=== PATIENT | female | born 1980 | race Caucasian/White ===

== ENCOUNTER 2021-08-07 13:44 | Outpatient (CLI) | payer SELFPAY ==
--- NOTE | 2021-08-07 13:52 | XRR_ITS ---
PROCEDURE INFORMATION: Exam: XR Left Ankle Exam date and time: 08/07/2021 1:52 PM Age: 41 years old Clinical indication: Left; Patient HX: History--no known inury pain and swelling to entire foot and ankle x 6 days; Additional info: L ankle foot pain TECHNIQUE: Imaging protocol: XR Left ankle. Views: 3 or more views. COMPARISON: No relevant prior studies available. FINDINGS: Bones/joints: Moderate calcified plantar calcaneal heel spur. Soft tissues: Normal. XR/XR ankle LT min 3V* [id number] IMPRESSION: 1. Negative for fracture or dislocation 2. Moderate calcified plantar calcaneal heel spur. Radiation Dose CTDIVOL = (mGy): DLP = (mGy-cm)
--- NOTE | 2021-08-07 13:52 | XRR_ITS ---
PROCEDURE INFORMATION: Exam: XR Left Foot Exam date and time: 08/07/2021 1:52 PM Age: 41 years old Clinical indication: Left; Patient HX: History--no known inury pain and swelling to entire foot and ankle x 6 days; Additional info: L ankle foot pain/edema TECHNIQUE: Imaging protocol: XR Left foot. Views: 3 or more views. COMPARISON: No relevant prior studies available. FINDINGS: Bones/joints: Moderate calcified plantar calcaneal heel spur. Soft tissues: Normal. XR/XR foot LT min 3V* [id number] IMPRESSION: 1. Negative for fracture or dislocation 2. Moderate calcified plantar calcaneal heel spur. Radiation Dose CTDIVOL = (mGy): DLP = (mGy-cm)
== END 2021-08-07 13:45 | disposition home or self-care (01) ==
LOC: RAD 13:48
PROVIDERS: PCP Nurse Practitioner Family; Visit Provider Nurse Practitioner Family
DX: M25.572 Pain in left ankle and joints of left foot (principal); M79.672 Pain in left foot; R60.9 Edema, unspecified; M77.32 Calcaneal spur, left foot
CPT/HCPCS: 73610; 73630

== ENCOUNTER 2021-08-25 14:44 | Outpatient (CLI) | payer SELFPAY ==
--- NOTE | 2021-08-25 14:53 | USCV_ITS ---
Kayleen Patel Age: 41 Gender: F : 1980 Exam Date: 08/25/2021 15:18 Ordering Phys: Giovanni Sanchez MD Technologist: Yocasta Zhang Exam Location: [facility] – [place] Indication: PAIN LT FOOT 3 WEEK WITH NO TRAUMA HISTORY: Pain Lt foot 3 weeks with no trauma PROCEDURES: Venous duplex imaging was performed in only the left lower extremity. The following venous structures were evaluated: common femoral vein, profunda vein, proximal portion of the greater saphenous vein, superficial femoral vein, and the popliteal vein. In addition, the posterior tibial and peroneal trunk were evaluated. Serial compression, augmentation maneuvers, and spectral Doppler flow evaluation were performed. FINDINGS: Normal 2-D Doppler and augmentation and compressibility throughout the lower extremity venous structures. Additional imaging through the proximal calf veins also reveals no thrombus. Limited evaluation of the greater saphenous vein is patent with no thrombus. Subcutaneous fluid near the ankle. CONCLUSIONS No DVT left lower extremity. Dr. Debby Gilbert DO (Electronically Signed) Final Date: 25 August 2021 16:05 S
== END 2021-08-25 14:45 | disposition home or self-care (01) ==
PROVIDERS: PCP Nurse Practitioner Family; Visit Provider Family Medicine
DX: M79.672 Pain in left foot (principal); R60.9 Edema, unspecified
CPT/HCPCS: 93971

== ENCOUNTER 2023-04-22 08:29 | Outpatient (CLI) | payer MEDICAID, SELFPAY ==
--- NOTE | 2023-04-22 08:36 | XRR_ITS ---
PROCEDURE INFORMATION: Exam: XR Left Knee Exam date and time: 04/22/2023 8:40 AM Age: 42 years old Clinical indication: Pain; Bilateral; Patient HX: Inflammation and swelling in both knees with sparatic swelling in hands and feet for 5 years; Additional info: Bilateral knee joint pain x 3 months TECHNIQUE: Imaging protocol: Radiologic exam of the left knee. Views: 3 views. AP Obilque Lateral COMPARISON: CR XR foot LT min 3V* [id number] 08/07/2021 2:16 PM FINDINGS: Bones/joints: There is normal alignment without fractures or dislocations. The medial and lateral tibiofemoral compartments and patellofemoral compartment are unremarkable. There are no joint bodies. There are no joint space or marginal erosive changes or periarticular osteopenia. Soft tissues: There is no joint effusion. There are no radiopaque foreign bodies. There is no knee region soft tissue swelling. Notes: If there is further concern, recommend follow-up radiographs or MRI for complete assessment. XR/XR knee LT 3V* [id number] IMPRESSION: Unremarkable left knee radiographs.
--- NOTE | 2023-04-22 08:36 | XRR_ITS ---
PROCEDURE INFORMATION: Exam: XR Right Knee Exam date and time: 04/22/2023 8:40 AM Age: 42 years old Clinical indication: Pain; Bilateral; Patient HX: Inflammation and swelling in both knees with sparatic swelling in hands and feet for 5 years; Additional info: Bilateral knee joint pain x 3 months TECHNIQUE: Imaging protocol: Radiologic exam of the right knee. Views: 3 views. AP Obilque Lateral COMPARISON: No relevant prior studies available. FINDINGS: Bones/joints: There is normal alignment without fractures or dislocations. The medial and lateral tibiofemoral compartments and patellofemoral compartment are unremarkable. There are no joint bodies. There are no joint space or marginal erosive changes or periarticular osteopenia. Soft tissues: There is no joint effusion. There are no radiopaque foreign bodies. There is no knee region soft tissue swelling. Notes: If there is further concern, recommend follow-up radiographs or MRI for complete assessment. XR/XR knee RT 3V* [id number] IMPRESSION: Unremarkable right knee radiographs.
== END 2023-04-22 08:30 | disposition home or self-care (01) ==
PROVIDERS: PCP Family Medicine; Visit Provider Family Medicine
DX: M25.562 Pain in left knee (principal); M25.561 Pain in right knee; M79.89 Other specified soft tissue disorders
CPT/HCPCS: 73562

== ENCOUNTER 2023-04-24 14:16 | Outpatient (CLI) | payer MEDICAID, SELFPAY ==
[2023-04-25 11:24] LABS: Anti-Double Strand DNA AB 6 IU/mL; SS A Ro Sjogrens Antibody <1.0 NEG AI (<1.0 NEG); SS-B/LA IGG <1.0 NEG AI (<1.0 NEG)
[2023-04-26 12:19] LABS: Anti-Nuclear Antibody Pattern Nuclear, Homogeneous; Anti-Nuclear Antibody Screen POSITIVE (NEGATIVE); Anti-Nuclear Antibody Titer 1:40 titer
[2023-06-05 16:41] LABS: SM/RNP Antibodies <1.0 NEG
== END 2023-04-24 14:17 | disposition home or self-care (01) ==
PROVIDERS: PCP Family Medicine; Visit Provider Dermatology
DX: R76.0 Raised antibody titer (principal)
CPT/HCPCS: 36415; 86038; 86225; 86235

== ENCOUNTER 2023-06-18 12:49 | Outpatient (CLI) | payer MEDICAID, SELFPAY ==
[2023-06-18 13:02] VITALS: PULSE 97; RESP 18; O2SAT 99
[2023-06-18] MEDS: albuterol 2.5 mg/3 mL Neb INHALATION (13:05)
[2023-06-18 13:06] VITALS: PULSE 90
== END 2023-06-18 12:50 | disposition home or self-care (01) ==
LOC: RT 12:50
PROVIDERS: PCP Family Medicine; Visit Provider Family Medicine
DX: J45.909 Unspecified asthma, uncomplicated (principal)
CPT/HCPCS: 94060

== ENCOUNTER → 2023-08-06 12:14 | Outpatient (BNVA) | payer MEDICAID, SELFPAY | PROVIDERS: PCP Family Medicine; Visit Provider Internal Medicine | DX: R76.8 Other specified abnormal immunological findings in serum (principal); M25.50 Pain in unspecified joint; R53.83 Other fatigue; R21 Rash and other nonspecific skin eruption; L40.9 Psoriasis, unspecified | CPT/HCPCS: 36415; 72202; 73120; 73620; 80053; 81001; 82533; 82550; 82607; 82784; 83516; 83735; 84100; 84443; 85025; 85651; 86140; 86200; 86704; 86803; 87340 ==

== ENCOUNTER → 2024-07-31 10:25 | Outpatient (BNVA) | payer MEDICAID, SELFPAY | PROVIDERS: PCP Family Medicine; Visit Provider Family Medicine | DX: R30.0 Dysuria (principal) | CPT/HCPCS: 81000; 87086 ==

== ENCOUNTER → 2025-05-11 09:00 | Outpatient (BNVA) | payer MEDICAID, SELFPAY | PROVIDERS: PCP Family Medicine; Visit Provider Family Medicine | DX: R39.9 Unspecified symptoms and signs involving the genitourinary system (principal) | CPT/HCPCS: 81000 ==

== ENCOUNTER → 2025-06-14 16:05 | Outpatient (BNVA) | payer MEDICAID, SELFPAY | PROVIDERS: PCP Family Medicine; Visit Provider Family Medicine | DX: I10 Essential (primary) hypertension (principal); Z82.49 Family history of ischemic heart disease and other diseases of the circulatory system; R60.9 Edema, unspecified | CPT/HCPCS: 80053; 80061; 83880; 84443; 85025 ==

== ENCOUNTER → 2025-06-17 13:07 | Outpatient (BNVA) | payer MEDICAID, SELFPAY | PROVIDERS: PCP Family Medicine; Visit Provider Emergency Medicine | DX: R10.9 Unspecified abdominal pain (principal) | CPT/HCPCS: 83690 ==

== ENCOUNTER 2025-06-22 09:58 | Outpatient (CLI) | payer MEDICAID, SELFPAY ==
--- NOTE | 2025-06-22 10:00 | US_ITS ---
WS: [id number] RIGHT UPPER QUADRANT ULTRASOUND HISTORY: epigastric and ruq abdominal pain, after eating COMPARISON: None available. Liver: 20.2 cm in length. Enlarged liver with mild diffuse hepatic steatosis. No intrahepatic mass. Portal Vein: Normal hepatopetal flow with monophasic waveform. Gallbladder: Nondistended gallbladder with numerous stones. No pericholecystic fluid. No gallbladder wall thickening. Several of the stones are near the gallbladder neck. CBD: 0.3 cm Pancreas: Normal size and echogenicity. Right kidney: 11.6 cm in length. Normal size and echogenicity. No hydronephrosis or mass. Aorta and IVC: Unremarkable abdominal aorta and IVC. No ascites. US/US gall bladder [id number] IMPRESSION: 1. Cholelithiasis without evidence for acute cholecystitis. Several of the sto megan are in the gallbladder neck. 2. No hepatobiliary duct dilatation. 3. Moderate hepatomegaly with mild hepatic steatosis.
== END 2025-06-22 09:59 | disposition home or self-care (01) ==
LOC: RAD 10:02
PROVIDERS: PCP Family Medicine; Visit Provider Emergency Medicine
DX: R10.9 Unspecified abdominal pain (principal); K80.20 Calculus of gallbladder without cholecystitis without obstruction; R16.0 Hepatomegaly, not elsewhere classified; K76.0 Fatty (change of) liver, not elsewhere classified
CPT/HCPCS: 76705

== ENCOUNTER 2025-07-05 08:03 | Outpatient (CLI) | payer MEDICAID, SELFPAY ==
--- NOTE | 2025-07-05 09:15 | CT_ITS ---
WS: [id number] CT ABDOMEN AND PELVIS WITH CONTRAST HISTORY: ventral incisional hernia TECHNIQUE: Imaging performed of the abdomen and pelvis with IV contrast. Single phase imaging of the abdomen. Coronal and sagittal reformats are submitted. All CT scans at [facility] use at least one of these dose optimization techniques: automated exposure control; mA and/or kV adjustment per patient size (includes targeted exams where dose is matched to clinical indication); or iterative reconstruction. IV CONTRAST: Omnipaque 350; 100 mL IV. Oral contrast: Yes. DLP: 1211.12 mGy.cm COMPARISON: None available. Lower thorax: Lung bases are clear. Heart is normal size. No hiatal hernia. Liver/biliary system: Normal size with no intrahepatic dilatation. Gallbladder: Normally distended gallbladder with stones. No stones are noted in the gallbladder neck on CT. Pancreas: Normal size pancreas and pancreatic duct. No adjacent inflammation. Spleen: Normal size spleen. No mass or infarct. Adrenal glands: Normal. Right kidney: Normal. Left kidney: Normal. Aorta: Normal. Lymphadenopathy: None. Free fluid: None. GI tract: Normally distended stomach. No small bowel or colon obstruction. No appendicitis. Tortuous sigmoid colon with mild diverticular burden. No evidence for acute diverticulitis. Abdominal wall: Small abdominal wall hernia measuring 1.4 cm. Omentum is herniating through the abdominal wall with omental fat stranding both within the herniated portion of the omentum and within the omentum contained by the abdominal wall. This is a large omental hernia measuring 6.2 x 7.5 x 7.9 cm. Suspect there is an area of fat necrosis and ischemia due to the fat stranding. There is no fluid collection. Pelvis: No free fluid or adenopathy within the pelvis. Uterus and ovaries are negative. Bones: Degenerative disc disease and vacuum phenomenon at L4-5 and L5-S1. CT/CT abdomen pelvis w con* [id number] IMPRESSION: 1. Cholelithiasis without evidence of acute cholecystitis. No stones are ident ified in the gallbladder neck on today's imaging exam. 2. Ventral abdominal wall hernia at the level of the umbilicus containing omen ashlee fat only. There is stranding of the omental fat both intra-abdominal and ex tra-abdominal suggesting areas of acute fat necrosis within the omentum. No flu id. 3. Sigmoid diverticulosis without without acute diverticulitis.
[2025-07-05] MEDS: iohexol 350 mg/mL 500 mL Btl (per mL) PO (09:29)
[2025-07-05] MEDS: iohexol 350 mg/mL 500 mL Btl (per mL) IV (09:29)
== END 2025-07-05 08:04 | disposition home or self-care (01) ==
LOC: RAD 08:03
PROVIDERS: PCP Family Medicine; Visit Provider Surgery
DX: K43.2 Incisional hernia without obstruction or gangrene (principal); K80.20 Calculus of gallbladder without cholecystitis without obstruction; K56.2 Volvulus; K57.30 Diverticulosis of large intestine without perforation or abscess without bleeding
CPT/HCPCS: 74177

== ENCOUNTER 2025-07-26 09:11 | Day surgery (SDC) | payer MEDICAID, SELFPAY ==
[2025-07-26] VITALS (12 sets, daily range): BP systolic 122–147; BP diastolic 69–95; PULSE 72–92; RESP 10–19; TEMP 36.3–37; O2SAT 91–96; BMI 42.7
--- NOTE | 2025-07-26 09:55 | P.HPUD_ITS ---
Surgery/Procedure H&P Update DATE OF PROCEDURE: July 26, 2025 DATE H&P PERFORMED: 06/29/25 H&P UPDATE INFORMATION: I have reviewed H&P completed within last 30 days, I have examined patient prior to procedure, No changes to prior documentation, H&P is in [facility] EMR on date indicated and Risks and benefits of the procedure reviewed PLANNED PROCEDURE: Operation Date: 07/26/25 11:05 Proposed Procedures p Laparoscopic POSSIBLE OPEN Cholecystectomy 41131 53616 K43.2 K80.20(Not Applicable) - Chapincito Jorge MD s Laparoscopic POSSIBLE OPEN Incisional Hernia Repair W/ Mesh(Not Applicable) - Chapincito Jorge MD
--- NOTE | 2025-07-26 10:43 | ANES.PREANE2 ---
Pre-Anesthetic Assessment Height/Weight: Height 5 ft 6 in Weight 265 lb Temp Pulse Resp BP Pulse Ox O2 Del Method 98.6 F 80 18 139/95 96 Room Air 07/26/25 10:16 07/26/25 10:16 07/26/25 10:16 07/26/25 10:16 07/26/25 10:16 07/26/25 10:16 Preop Diagnosis: Cholelithiasis Operation Date: 07/26/25 11:05 Proposed Procedures p Laparoscopic POSSIBLE OPEN Cholecystectomy [id number] K43.2 K80.20(Not Applicable) - Chapincito Jorge MD s Laparoscopic POSSIBLE OPEN Incisional Hernia Repair W/ Mesh(Not Applicable) - Chapincito Jorge MD Was Beta Syed taken within 24 hours: N/A Was Clonidine taken within 24 hours: N/A Last intake: Intake Last Liquid Date 07/25/25 Last Liquid Time 21:30 Last Solid Date 07/25/25 Last Solid Time 19:00 Social Tobacco and No alcohol Exam alert, oriented x 3, clear to auscultation bilaterally and regular rate & rhythm Airway Submandibular: within normal limits Cervical ROM: within normal limits Mallampati: Class III Dentition: full Anesthetic Plan Other: No prior issues with anesthesia NPO since yesterday evening History of asthma, current smoker Denies any cardiac issues GERD on Pepcid Labs reviewed 06/14/2025 acceptable for procedure today METs greater than 4 Plan for GETA Medications/Allergies Home Medications ?Medication ?Instructions ?Recorded ?Confirmed ?Last Taken ?Type ciclopirox 0.77 % topical cream 1 applic topical BID 08/14/23 07/26/25 Unknown History triamcinolone acetonide 0.5 % 1 applic topical TID 08/14/23 07/26/25 Unknown History topical cream valacyclovir 1 gram tablet 1,000 mg PO DAILY 5 days #5 tabs 03/30/25 07/26/25 Unknown Rx (Valtrex) blood pressure cuff #1 ea 06/14/25 07/26/25 Unknown Rx ondansetron HCl 8 mg tablet 8 mg PO Q8H PRN nausea and/or 06/17/25 07/26/25 Unknown Rx vomiting #30 tabs famotidine 20 mg tablet 20 mg PO DAILY 06/29/25 07/26/25 Unknown History albuterol sulfate 90 mcg/actuation 2 puff inhalation Q6H PRN 07/14/25 07/26/25 07/26/25 Rx aerosol inhaler (Ventolin HFA) shortness of breath or wheezing #8.5 grams bupropion HCl 300 mg 24 hr tablet, 300 mg PO DAILY 07/22/25 07/26/25 07/25/25 History extended release fluticasone 100 mcg-salmeterol 50 1 inh inhalation BID 07/22/25 07/26/25 07/25/25 History mcg/dose blistr powdr for inhalation (Advair Diskus) Allergies Allergy/AdvReac Type Severity Reaction Status Date / Time hydrochlorothiazide Allergy Severe ALGY-Rash Verified 07/26/25 09:52 lisinopril Allergy Severe ADR-Headach Verified 07/26/25 09:52 e losartan Allergy Severe ALGY-Swell Verified 07/26/25 09:57 Lip/Tongue/Throat amlodipine Allergy rash Verified 07/26/25 09:52 aspirin AdvReac Mild Abdominal Verified 07/26/25 09:52 pain Current Medications Generic Name Dose Route Start Last Admin Trade Name Freq PRN Reason Stop Dose Admin Sodium Chloride 1,000 mls @ 30 mls/hr 07/26/25 09:30 07/26/25 10:22 Sodium Chloride 0.9% IV 07/27/25 09:29 30 mls/hr .Q24H [facility] Administration PFSH Anesthesia Medical History (Updated 06/29/25 @ 15:46 by Chapincito Jorge MD) Smoker Arthralgia Asthma Hypertension Family History Father CAD (coronary artery disease) Brother Lung cancer Brother Seizure disorder Arrhythmia Social History Smoking and tobacco/nicotine status: current every day tobacco/nicotine user cigarettes Packs smoked per day: 0.5 Quit status (tobacco/nicotine): considering quitting Alcohol intake: current Alcohol intake frequency: few times a month Substance/Drug Use: never Lives independently: Yes Household members: spouse and children Marital status: Number of children: 2 Current occupational status: unemployed Special maddi needs: No Agree to transfusion: Yes
[2025-07-26] MEDS: ceFAZolin 3,000 MG in sodium chloride 0.9% (100 ml) 100 ML 200 MG IV (11:56)
[2025-07-26] MEDS: lidocaine-epi 1% 20 mL INJ INJECTION (13:50)
[2025-07-26] MEDS: BUPivacaine 0.25% INJ 10 mL INJECTION (13:50)
--- NOTE | 2025-07-26 14:03 | PM.OP ---
Operative Report Date of procedure: July 26, 2025 Pre-op diagnosis: Symptomatic cholelithiasis, abdominal wall hernia Post-op diagnosis: Same Post-op findings: There was incisional hernia at the level of the umbilicus, omentum was incarcerated inside of the hernia defect once it was reduced the hernia defect measured about 2.5 cm. There were adhesions from the omentum to the dome of the gallbladder, otherwise normal biliary anatomy Procedure done: Laparoscopic cholecystectomy, primary repair of incarcerated ventral incisional hernia Specimens removed/disposition: Gallbladder and contents, portion of omentum Surgeon: Chapincito Jorge MD [employer] Chief: WILIAN OR STaff Estimated blood loss: 5 Complications: none apparent Brief History: 45-year-old female with symptomatic lithiasis and a ventral hernia who presented for evaluation for cholecystectomy and surgical repair of the hernia, after discussion of all risk benefits with side to proceed to the OR. Procedure: Patient was brought into the OR, she was placed in a supine position. General anesthesia was given. The abdomen was prepped and draped in the usual sterile fashion. The abdomen was accessed in the left upper quadrant with a 5 mm Optiview trocar, initial pneumoperitoneum was obtained and no evidence of injury during entry was noted. Upon immediate expansion of the abdomen incisional hernia was noted with portion of omentum incarcerated inside of the hernia. Additional 5 mm trocars were placed in the right upper quadrant, right flank and epigastric under direct visualization. I then proceeded to use a combination of blunt dissection and LigaSure to take down the adhesions from the omentum to the ring cholecystectomy hernia and then I carefully reduced old contents from the hernia sac into the abdomen, good portion of the omentum was stuck inside of the hernia sac and significant dissection was required to reduce it. After reduction there was a bit about the 1 x 5 cm portion of the omentum that appeared diverticulitis and was resected with LigaSure and sent to pathology as a specimen. I then proceeded to place my millimeter trocar through the hernia in an infraumbilical position using the previous surgical incision. I then placed the patient on the street records Trendelenburg with OpSite, placed under tension to the right upper quadrant. The gallbladder was grasped by the fundus and retracted cephalad, adhesions from the gastrocolic omentum to the fundus and anterior wall of the gallbladder were taken down with electrocautery. Additional adhesions from the omentum to the infundibulum and the periduodenal tissue to the cystic triangle were carefully taken down bluntly. The infundibulum was grasped and retracted in the inferolateral direction. The peritoneum anterior to the hepatocystic triangle was opened with electrocautery and the medial and lateral direction to the edges of the liver and then on the sides of the gallbladder to allow for better exposure. With careful blunt and sharp dissection using electrocautery I was able to encircle the cystic duct artery and I also elevated blood return to gallbladder thus creating a critical view of safety. Before clipping the cystic duct I used a [place] to milk up all the stones to prevent any retained stone fragments in the duct. I then double clipped proximal single clip distally and the cystic duct at the cystic artery and transected. The gallbladder was removed from the abdomen with electrocautery, unfortunately unremarkable the gallbladder a small hole was made in the posterior wall resulting in bile spillage. The specimen was retrieved in an Endo Catch bag via the infraumbilical trocar. All of air was suctioned with the suction irrigation and then the gallbladder bed as well as the Morison pouch was irrigated and suctioned until clear fluid was visualized. The clips appeared to be in good position there was no evidence of bleeding or bile leak. Due to spillage of bile I decided to do a primary repair of her incisional hernia not mesh to decrease the likelihood of infection. I proceeded with the repair using #0 PDS [id number] sutures using a Colt-Penelope suture passer under direct distalization, a total of 4 [id number] sutures were required to close the defect. The epigastrium right upper quadrant and around flank swelling open direct visualization, the left upper quadrant trocar was used to obtain the pneumoperitoneum and subsequently removed. The wounds were then closed in layers with #3-0 Vicryl for subcutaneous tissue #4 Monocryl for the skin, before skin closure hemostasis was achieved and lidocaine was infiltrated in the tissue. Dermabond was applied. At the end of the procedure all counts were correct, the patient tolerated well the procedure was transferred to the PACU in stable condition.
--- NOTE | 2025-07-26 16:28 | ANE.PACU2 ---
Inpatient post-anesthesia follow up: Airway intact: Yes Vital signs: Temperature 97.4 F Pulse Rate 72 Respiratory Rate 17 Blood Pressure 125/73 Pulse Oximetry 94 Oxygen Delivery Me thod Room Air Oxygen Flow Rate Fraction of Inspir ed Oxygen Hydration adequate: Yes Nausea and vomiting: No Pain level: 1 Mental status: Baseline
== END 2025-07-26 16:28 | disposition home or self-care (01) ==
PROVIDERS: Student in an Organized Health Care Education/Training Program; PCP Family Medicine; Visit Provider Surgery
PROC: 0FT44ZZ Resection of Gallbladder, Percutaneous Endoscopic Approach (ICD-10-PCS; CPT 47562; principal; 2025-07-26 10:55)
PROC: 0WQF4ZZ Repair Abdominal Wall, Percutaneous Endoscopic Approach (ICD-10-PCS; CPT 47562; 2025-07-26 10:55)
DX: K80.10 Calculus of gallbladder with chronic cholecystitis without obstruction (principal); K43.9 Ventral hernia without obstruction or gangrene; J45.909 Unspecified asthma, uncomplicated; K21.9 Gastro-esophageal reflux disease without esophagitis; I10 Essential (primary) hypertension; F17.210 Nicotine dependence, cigarettes, uncomplicated
CPT/HCPCS: 47562; 88304; 88305; A4216; J0131; J0330; J0690; J1100; J1171; J1200; J1885; J2250; J2405; J2704; J3010; J3475; J3490; J7030; J9999